=== PATIENT | male | born 1940 | race Caucasian/White ===

== ENCOUNTER 2023-09-07 12:34 | Emergency (ER) | payer OTHER ==
[~2023-09-07] VITALS: Ht 177.8 cm; Wt 68.0 kg
[2023-09-07 13:26] VITALS: BP 134/91; TEMP 97.6; O2SAT 97
== END 2023-09-07 13:26 | disposition home or self-care (01) ==
LOC: ER 13:02
DX: T83.021A Displacement of indwelling urethral catheter, initial encounter (principal); I10 Essential (primary) hypertension; Y84.6 Urinary catheterization as the cause of abnormal reaction of the patient, or of later complication, without mention of misadventure at the time of the procedure; Y92.89 Other specified places as the place of occurrence of the external cause